=== PATIENT | male | born 1965 | race Caucasian/White ===

== ENCOUNTER 2021-01-08 08:41 | Day surgery (SDC) | payer BC, MEDICAID ==
[2021-01-08] MEDS ORDERED: Propofol 200 MG/20 ML SDV IV ONE (08:42)
[2021-01-08] MEDS ORDERED: Midazolam 1 MG/ML 2 ML SDV IV ONE (08:42)
[2021-01-08] MEDS ORDERED: Sodium Chloride 0.9% 10 ML Syringe FLUSH PRN (09:00)
[2021-01-08] MEDS: Lactated Ringers 1,000 ML IV SCH (09:10)
[2021-01-08] MEDS ORDERED: Midazolam 1 MG/ML 2 ML SDV ONE (10:38)
[2021-01-08] MEDS ORDERED: Propofol 200 MG/20 ML SDV ONE ×2 (10:38→11:07)
[2021-01-08] MEDS ORDERED: Lactated Ringers 1,000 ML ONE (11:36)
--- NOTE | 2021-01-08 11:39 | PCM.PRNOTE ---
- Free Text/Narrative Note: PROCEDURE PERFORMED: Colonoscopy with polypectomy PRE-PROCEDURE DIAGNOSIS/INDICATION FOR PROCEDURE: +Cologuard; no history of other colorectal cancer screening CONSENT: Informed consent was obtained prior to the procedure after discussion of the risks (including pain, bleeding, infection, perforation, missed polyps, inability to completely remove polyps or complete procedure necessitating repeat colonoscopy, adverse reaction to anesthesia, cardiovascular event), benefits and alternatives and expected outcomes. The patient expressed understanding and wished to proceed. Verbal consent given and consent form signed. PROCEDURAL PAUSE: Completed SEDATION: Per anesthesia DESCRIPTION OF PROCEDURE: Patient was placed in the left lateral decubitus position. After adequate sedation and anesthetic was administered, a rectal exam was performed revealing no abnormalities. A lubricated Olympus Video Colonoscope was inserted into the rectum and air insufflation was performed. The colonoscope was advanced through the rectum, sigmoid, descending, transverse, and ascending colon without difficulties. The cecum was reached and the ileocecal valve as well as the appendiceal orifice were identified and pictorially documented. After adequate visualization of the cecum, the scope was withdrawn, giving 360-degree views of the colonic mucosa and retroflexion was performed in the rectum with the following findings noted: Ileocecal valve: Normal Cecum: Normal Ascending colon: Normal Hepatic flexure: Normal Transverse colon: Normal Splenic flexure: Normal Descending colon: Normal Sigmoid colon: Scattered small diverticula; At 30cm, 0.8cm polyp removed by hot snare with subsequent complete polypoid tissue removal and hemostasis noted; At 10cm, 0.8cm polyp removed by hot snare with subsequent complete polypoid tissue removal and hemostasis noted Rectum: Mild internal hemorrhoids The scope was straightened, air suction performed, and the scope withdrawn without complication. Preparation adequacy [place] Bowel Score 8/9. IMPRESSION: Colonoscopy performed revealing: - Two 0.8cm sigmoid polyps, pathology now pending - Scattered small sigmoid diverticulosis - Mild internal hemorrhoids PLAN: Will contact the patient when pathology results received with recommendation for repeat colonoscopy. Encourage adequate fiber diet and bowel regimen to ensure avoidance of constipation.
== END 2021-01-08 12:32 | disposition home or self-care (01) ==
LOC: KA.SDS 08:41
PROVIDERS: ATTEND Family Medicine
DX: D12.5 Benign neoplasm of sigmoid colon (principal); K57.30 Diverticulosis of large intestine without perforation or abscess without bleeding; K64.8 Other hemorrhoids; I10 Essential (primary) hypertension; E78.5 Hyperlipidemia, unspecified; F03.90 Unspecified dementia, unspecified severity, without behavioral disturbance, psychotic disturbance, mood disturbance, and anxiety; F17.210 Nicotine dependence, cigarettes, uncomplicated; E66.9 Obesity, unspecified; Z68.28 Body mass index [BMI] 28.0-28.9, adult; Z98.890 Other specified postprocedural states; Z79.899 Other long term (current) drug therapy
CPT/HCPCS: 00812; J2250; J2704; J7120

== ENCOUNTER 2021-01-31 20:40 | Emergency (ER) | payer BC, MEDICAID ==
--- NOTE | 2021-01-31 21:39 | EDM.PDOC ---
ED HPI GENERAL MEDICAL PROBLEM - General Chief Complaint: General Stated Complaint: RIGHT ARM INJURY Time Seen by Provider: 01/31/21 21:15 Source of Information: Reports: Patient History Limitations: Reports: No Limitations - History of Present Illness INITIAL COMMENTS - FREE TEXT/NARRATIVE: 55 YO WM PRESENTS TO ER WITH RIGHT FOREARM INJURY WHICH OCCURRED 01/27/2021. 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 PT DENIES SWELLING, ECCHYMOSIS OR REDNESS. PT REPORTS PAIN WITH PRONATION/SUPINATION AND GRIPPING EQUIPMENT. PT DENIES ANY OTHER INJURY Onset Date: 01/27/21 Duration: Day(s): (5) Location: Reports: Upper Extremity, Right Quality: Reports: Ache Severity: Mild Improves with: Reports: None Worsens with: Reports: None Associated Symptoms: Reports: No Other Symptoms Right Lower Arm Pain Score (Numeric/FACES): 10 - Related Data Allergies Allergy/AdvReac Type Severity Reaction Status Date / Time No Known Drug Allergies Allergy Other Verified 01/31/21 20:56 Home Meds: Home Meds DULoxetine HCl [Duloxetine HCl] 60 mg PO DAILY 07/22/18 [History] Cholecalciferol (Vitamin D3) [Vitamin D3] 25 mcg PO DAILY 01/05/21 [History] Cyanocobalamin (Vitamin B12) [Vitamin B12] 500 mcg PO DAILY 01/05/21 [History] Meloxicam 15 mg PO DAILY 01/05/21 [History] [place]-3 Fatty Acids/Fish Oil [Fish Oil 1,000 mg Capsule] 1,000 mg PO DAILY 01/05/21 [History] Simvastatin 10 mg PO DAILY 01/05/21 [History] Zinc 50 mg PO DAILY 01/05/21 [History] Past Medical History HEENT History: Reports: Other (See Below) Other HEENT History: missing several teeth Respiratory History: Reports: Other (See Below) Other Respiratory History: Tobacco abuse Gastrointestinal History: Reports: GERD, Other (See Below) Other Gastrointestinal History: LFTs elevation likely secondary to alcohol use Musculoskeletal History: Reports: Arthritis, Fracture, Osteoarthritis, Other (See Below) Other Musculoskeletal History: Left ankle fracture with probable surgery as below. Neurological History: Reports: CVA Psychiatric History: Reports: Addiction, Anxiety, Bipolar, Depression, Psych Hospitalization(s), Other (See Below) Other Psychiatric History: Alcohol addiction with previous inpatient treatments on multiple occasions Endocrine/Metabolic History: Reports: Other (See Below) Other Endocrine/Metabolic History: Incidental lipid rich left-sided adrenal adenoma. - Infectious Disease History Infectious Disease History: Reports: Chicken Pox - Past Surgical History GI Surgical History: Reports: Appendectomy, Other (See Below) Other GI Surgeries/Procedures: Appendectomy by clinical exam. Musculoskeletal Surgical History: Reports: ORIF, Other (See Below) Other Musculoskeletal Surgeries/Procedures:: ORIF of the left ankle based on clinical exam. - Past Imaging History Past Imaging History: Reports: CAT Scan (CT of the abdomen and pelvis on 07/23/18) - History Comment History Comment: Unable to obtain complete history secondary to patient's intoxication Social & Family History - Caffeine Use Caffeine Use: Reports: Coffee, Soda ED ROS GENERAL - Review of Systems Review Of Systems: See Below Constitutional: Reports: No Symptoms HEENT: Reports: No Symptoms Respiratory: Reports: No Symptoms Cardiovascular: Reports: No Symptoms Endocrine: Reports: No Symptoms GI/Abdominal: Reports: No Symptoms : Reports: No Symptoms Musculoskeletal: Reports: Arm Pain Skin: Reports: No Symptoms Neurological: Reports: No Symptoms Psychiatric: Reports: No Symptoms Hematologic/Lymphatic: Reports: No Symptoms Immunologic: Reports: No Symptoms ED EXAM, GENERAL - Physical Exam Exam: See Below Exam Limited By: No Limitations General Appearance: Alert, WD/WN, No Apparent Distress Neck: Normal Inspection, Supple, Non-Tender, Full Range of Motion Respiratory/Chest: No Respiratory Distress, Lungs Clear, Normal Breath Sounds, No Accessory Muscle Use, Chest Non-Tender Cardiovascular: Normal Peripheral Pulses, Regular Rate, Rhythm, No Edema, No Gallop, No JVD, No Murmur, No Rub GI/Abdominal: Normal Bowel Sounds, Soft, Non-Tender, No Organomegaly, No Distention, No Abnormal Bruit, No Mass Back Exam: Normal Inspection, Full Range of Motion, NT Extremities: Arm Pain (RIGHT FOREARM PAIN WITH AROM, NO SWELLING, NO ECCHYMOSIS) Neurological: Alert, Oriented, CN II-XII Intact, Normal Cognition, Normal Gait, Normal Reflexes, No Motor/Sensory Deficits ED GENERAL MEDICAL PROCEDURES - Splinting Right Upper Extremity Splint Site: RIGHT FOREARM Pre-procedure NV status: Normal Post-procedure NV status: Normal Splint Type: Pre-Fabricated Splint Material: Velcro Splint Design: Thumb Spica Applied & Form Fitted By: Nurse Provider Post-Splint Application NV Check: NV Status Normal, Good Position Complications: No Course - Vital Signs Last Recorded V/S: Last Vital Signs Temp 97.5 F 01/31/21 21:06 Pulse 64 01/31/21 21:06 Resp 18 01/31/21 21:06 BP 117/71 01/31/21 21:06 Pulse Ox 97 01/31/21 21:06 - Orders/Labs/Meds Orders: Active Orders 24 hr Category Date Time Status Forearm 2V Rt [CR] Stat Exams 01/31/21 21:08 Ordered - Radiology Interpretation Free Text/Narrative:: RIGHT FOREARM XRAY- NAD Departure - Departure Time of Disposition: 21:43 Disposition: Home, Self-Care 01 Condition: Good Clinical Impression: Strain of right forearm Qualifiers: Encounter type: initial encounter Qualified Code(s): S56.911A - Strain of unspecified muscles, fascia and tendons at forearm level, right arm, initial encounter - Discharge Information Instructions: Muscle Strain Referrals: Shona Redmond PA-C [Primary Care Provider] - Additional Instructions: 1. DISCHARGE HOME 2. VELCRO WRIST SPLINT 3. REST/ICE/MOTRIN EVERY 6 HOURS NEEDED 4. FOLLOW UP WITH PCP FOR FURTHER EVALUATION AND TREATMENT 5. RETURN TO ER FOR WORSENING SYMPTOMS Sepsis Event Note (ED) - Evaluation Sepsis Screening Result: No Definite Risk - Focused Exam Vital Signs: Vital Signs Temp Pulse Resp BP Pulse Ox 01/31/21 21:06 97.5 F 64 18 117/71 97 - My Orders Last 24 Hours: My Active Orders 01/31/21 21:08 Forearm 2V Rt [CR] Stat - Assessment/Plan Last 24 Hours: My Active Orders 01/31/21 21:08 Forearm 2V Rt [CR] Stat Assessment:: 1. RIGHT FOREARM STRAIN Plan: 1. DISCHARGE HOME 2. VELCRO WRIST SPLINT 3. REST/ICE/MOTRIN EVERY 6 HOURS NEEDED 4. FOLLOW UP WITH PCP FOR FURTHER EVALUATION AND TREATMENT 5. RETURN TO ER FOR WORSENING SYMPTOMS
--- NOTE | 2021-02-01 09:12 | CR ---
[id number] RAD/RAD Forearm Right 2V Exam: RAD Forearm Right 2V Indication:RIGHT FOREARM PAIN Comparison: No prior imaging for comparison. Discussion/Impression: Bones in normal alignment. No fracture, AVN, or erosive changes. Joint spaces are well-preserved. Bone mineralization is normal. Rene Caruso MD 02/01/21 0932 Thank you for allowing us to participate in the care of your patient.
== END 2021-01-31 21:49 | disposition home or self-care (01) ==
LOC: KA.ED 20:40
DX: S56.911A Strain of unspecified muscles, fascia and tendons at forearm level, right arm, initial encounter (principal); X50.0XXA Overexertion from strenuous movement or load, initial encounter; Y99.0 Civilian activity done for income or pay
CPT/HCPCS: 73090-RT; 99283